=== PATIENT | male | born 1945 | race Caucasian/White ===

== ENCOUNTER → 2017-02-07 | Outpatient (CLI) | payer MEDICARE, OTHER ==
[~2017-02-07] MED LIST: CHRO1000 PO; CINN500C2 PO; CYAN10008 PO; FLAX1000 PO; GLUC1TAB9 PO; HYDR25TA6 PO; LOVA40TA2 PO; METF500T4 PO; METO50TA4 PO; MULT-516 PO; NIAC500T4 PO; OMEG-120 PO; TRAM50TA2 PO; TRAN2TAB2 PO; UBID100C11 PO; VERA180T56 PO
== END | disposition home or self-care (01) ==
LOC: LAB 14:39
PROVIDERS: ATTEND Family Medicine
DX: Z01.818 Encounter for other preprocedural examination (principal); I10 Essential (primary) hypertension; E11.9 Type 2 diabetes mellitus without complications
CPT/HCPCS: 36415; 85610

== ENCOUNTER → 2017-02-07 | Outpatient (CLI) | payer MEDICARE, OTHER ==
[2017-02-07 15:05] LABS: HEMOGLOBIN 15.8 g/dL (13.7-18.0)
[2017-02-07 15:14] LABS: BLOOD UREA NITROGEN 18 mg/dL (7-18)
[2017-02-07 15:18] LABS: ASPARTATE AMINO TRANSFERASE 35 U/L (15-37)
== END | disposition home or self-care (01) ==
LOC: STAR 13:04
PROVIDERS: ATTEND Orthopaedic Surgery
DX: M17.0 Bilateral primary osteoarthritis of knee (principal); M16.0 Bilateral primary osteoarthritis of hip; S83.211A Bucket-handle tear of medial meniscus, current injury, right knee, initial encounter; S83.212A Bucket-handle tear of medial meniscus, current injury, left knee, initial encounter; X58.XXXA Exposure to other specified factors, initial encounter; Y93.89 Activity, other specified; Y92.89 Other specified places as the place of occurrence of the external cause; Y99.2 Volunteer activity
CPT/HCPCS: 36415; 80053; 81003; 85025; 87081; 87147